=== PATIENT | female | born 2005 | race Caucasian/White ===

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

== ENCOUNTER 2023-10-24 05:05 | Emergency (ER) | payer SELFPAY ==
[2023-10-24] MEDS: Acetaminophen 325 MG Tab PO ONE (08:57)
[2023-10-24 13:31] LABS: BARBITURATE SCREEN,URINE NEGATIVE (CUTOFF=200); BENZODIAZEPINES SCREEN,URINE NEGATIVE (CUTOFF=150); BUPRENORPHINE SCREEN,URINE PRESUMPTIVE POSITIVE (CUTOFF=10); METHADONE SCREEN, URINE NEGATIVE (CUTOFF=200); METHAMPHETAMINES SCREEN, URINE PRESUMPTIVE POSITIVE (CUTOFF=500); OXYCODONE SCREEN,URINE NEGATIVE (CUT0FF=100); THC SCREEN,URINE 20 NG/ML PRESUMPTIVE POSITIVE (CUTOFF=50)
[2023-10-24 13:33] LABS: AMPHETAMINES SCREEN, URINE PRESUMPTIVE POSITIVE (CUTOFF=500)
== END 2023-10-24 15:54 | disposition home or self-care (01) ==
LOC: JD.ED 05:05 → EEVIPCON 05:05 → JD.ED 15:54
DX: S00.83XA Contusion of other part of head, initial encounter (principal); S10.93XA Contusion of unspecified part of neck, initial encounter; Z86.16 Personal history of COVID-19; Z88.0 Allergy status to penicillin; Y04.8XXA Assault by other bodily force, initial encounter
CPT/HCPCS: 36415; 70450; 72125; 80306; 84703; 99284; A9270

== ENCOUNTER 2024-05-20 11:25 | Emergency (ER) | payer SELFPAY ==
[2024-05-20] MEDS: OLANZapine 10 MG Vial IM ONE (11:39)
[2024-05-20] MEDS: Sodium Chloride 0.9% 10 ML Syringe FLUSH PRN (12:42)
[2024-05-20] MEDS: LORazepam 2 MG/ML SDV IM ONE (12:43)
[2024-05-20] MEDS: Sodium Chloride 0.9% 1,000 ML IV ONE (12:43)
[2024-05-20 12:44] LABS: BASOPHILS PERCENT AUTO 0.5 % (0.0-1.0); EOSINOPHILS PERCENT AUTO 0.2 % (0.0-6.0); HEMATOCRIT 44.4 % (37.0-47.0); IMMATURE GRAN ABSOLUTE AUTO 0.02 K/mm3 (0.00-0.05); IMMATURE GRAN PERCENT AUTO 0.2 % (0.0-0.4); LYMPHOCYTES ABSOLUTE AUTO 3.7 K/mm3 (1.0-4.8); LYMPHOCYTES PERCENT AUTO 43.7 % (24.0-44.0); MEAN CORPUSCULAR HEMOGLOBIN 31.8 pg (28.0-32.0); MEAN CORPUSCULAR VOLUME 88.3 fl (83.0-99.0); MEAN PLATELET VOLUME 8.9 fl (9.4-12.3); MONOCYTES ABSOLUTE AUTO 0.5 K/mm3 (0.0-0.8); MONOCYTES PERCENT AUTO 5.4 % (0.0-8.0); NEUTROPHILS ABSOLUTE AUTO 4.3 K/mm3 (1.8-7.7); PLATELET COUNT,PLT 286 K/mm3 (150-400); RED BLOOD CELL COUNT 5.03 M/mm3 (4.10-5.30); WHITE BLOOD CELL COUNT,WBC 8.53 K/mm3 (3.9-11.3)
[2024-05-20 12:54] LABS: BARBITURATE SCREEN,URINE NEGATIVE (CUTOFF=200); BENZODIAZEPINES SCREEN,URINE NEGATIVE (CUTOFF=150); BUPRENORPHINE SCREEN,URINE NEGATIVE (CUTOFF=10); METHADONE SCREEN, URINE NEGATIVE (CUTOFF=200); METHAMPHETAMINES SCREEN, URINE PRESUMPTIVE POSITIVE (CUTOFF=500); OXYCODONE SCREEN,URINE NEGATIVE (CUT0FF=100); THC SCREEN,URINE 20 NG/ML NEGATIVE (CUTOFF=50)
[2024-05-20 12:58] LABS: AMPHETAMINES SCREEN, URINE PRESUMPTIVE POSITIVE (CUTOFF=500)
[2024-05-20 13:17] LABS: A/G RATIO 1.3 (1-2); ALANINE AMINOTRANSFERASE,ALT 21 U/L (14-59); ALBUMIN 4.5 g/dl (3.4-5.0); ALKALINE PHOSPHATASE 119 U/L (46-116); ANION GAP 21.3 (5-15); ASPARTATE AMNIOTRANSFERASE,AST 18 U/L (15-37); BILIRUBIN TOTAL 1.7 mg/dL (0.2-1.0); BLOOD UREA NITROGEN,BUN 22 mg/dL (7-18); CALCIUM 9.8 mg/dL (8.5-10.1); CARBON DIOXIDE,CO2 20 mEq/L (21-32); CHLORIDE,CL 106 mEq/L (98-107); CREATININE 1.1 mg/dL (0.55-1.02); EST CRCL DRUG DOSING (CG) 73.41 mL/min; ESTIMATED GFR 74 mL/min (>60); GLUCOSE RANDOM 82 mg/dL (70-99); POTASSIUM,K 3.3 mEq/L (3.5-5.1); PROTEIN TOTAL,TP 7.9 g/dl (6.4-8.2); SODIUM,NA 144 mEq/L (136-145)
[2024-05-20 13:21] LABS: ACETAMINOPHEN 0 ug/mL (10-30); HCG QUANTITATIVE < 1.0 mIU/mL
[2024-05-20] MEDS: LORazepam 2 MG/ML SDV IVPUSH ONE ×2 (14:18→18:49)
[2024-05-20] MEDS: droPERidol 2.5 MG/ML SDV IV ONE (18:53)
== END 2024-05-21 09:05 | disposition home or self-care (01) ==
LOC: JD.ED 11:25
DX: F15.159 Other stimulant abuse with stimulant-induced psychotic disorder, unspecified (principal); F41.9 Anxiety disorder, unspecified; Z86.16 Personal history of COVID-19; Z88.0 Allergy status to penicillin
CPT/HCPCS: 36415; 80053; 80143; 80179; 80306; 80307; 84443; 84702; 85025; 93005; 93010; 96361; 96372; 96374; 96375; 99284; 99284-25; J2060; J2359; J7030